=== PATIENT | female | born 1940 | race Caucasian/White ===

== ENCOUNTER → 2016-06-19 | Outpatient (CLI) | payer MEDICARE, OTHER ==
[2016-06-19 14:54] LABS: Blood Urea Nitrogen 28 mg/dL (7-17); Non-African American GFR(MDRD) >60 (>60 ml/min/1.73 sqM)
--- NOTE | 2016-06-19 23:03 | MR ---
EXAMINATION TYPE: MR abdomen wo/w con DATE OF EXAM: 06/19/2016 4:21 PM COMPARISON: NONE HISTORY: 75-year-old female abnormal finding on diagnostic imaging, hypertension, high blood pressure . Liver lesions. Patient reports ultrasound performed at home on 05/30/2016. Technique: Multiplanar, multisequence images of the abdomen were obtained before and after administra tion of 20 mL intravenous MultiHance gadolinium contrast. FINDINGS: There is excessive motion artifact on nearly all sequences. - There is a lobulated 3.4 cm T2 hyperintense, nonenhancing cyst within the right liver lobe. - A second 8 mm nonenhancing cyst posterior right hepatic lobe axial T2 series 501 image 15. - Third lobulated cyst measuring 8.3 mm inferior right hepatic lobe axial image 8. Portal venous system is patent. The bile duct is mildly dilated at 6.8 mm but within normal limits fo r patient's age. Gallbladder, adrenal glands, spleen, and pancreas within normal limits. Allowing for motion artifacts, there are a couple small cysts within both kidneys measuring up to 1.2 cm on the left. No hydronephrosis. Within the left kidney upper pole, there is a mildly T2 hyperint ense 1.1 cm lesion that shows T1 bright signal and possible minimal intralesional enhancement, series 801 image 65. This should be reassessed on follow-up. A complicated cyst is possible. No gross bowel abnormality, ascites fluid, or upper abdominal lymphadenopathy seen. Degenerative levoconvex scoliosis of the lumbar spine. IMPRESSION: 1. Motion limited examination as the patient had trouble with breath holds. 2. Dominant lesion in the liver is a 3.4 cm lobulated cyst in the right liver lobe. Additional scatte red subcentimeter cysts are present. No definite suspicious liver lesion allowing for the motion dana facts. Correlate as to the abnormality seen on outside ultrasound. 3. A few cysts within the kidneys as well. However, a 1.1 cm lesion in the left upper pole is not def initively characterized at this time due to motion. There may be some internal enhancement. A hemorrh agic/proteinaceous cyst is possible. A 6 month follow-up can reassess.
== END ==
LOC: RADMRIMAIN 14:03
PROVIDERS: ATTEND Family Medicine
DX: K76.89 Other specified diseases of liver (principal); N28.1 Cyst of kidney, acquired
CPT/HCPCS: 82565; 84520; 74183; 36415; A9577